=== PATIENT | female | born 1980 | race Caucasian/White ===

== ENCOUNTER 2017-04-14 20:45 | Emergency (ER) | payer OTHER ==
[~2017-04-14] VITALS: Ht 162.6 cm; Wt 70.0 kg
[2017-04-15] MEDS ORDERED: HYDROcodone/APAP 5/325 TABLET PO ONE
[2017-04-15] MEDS ORDERED: HYDROcodone/APAP 5/325 TABLET ONE (00:11)
[2017-04-15 01:04] VITALS: BP 114/74
== END 2017-04-15 01:06 | disposition home or self-care (01) ==
LOC: ED 23:58
DX: O99.353 Diseases of the nervous system complicating pregnancy, third trimester (principal); G89.11 Acute pain due to trauma; Z88.0 Allergy status to penicillin
CPT/HCPCS: 59025; 99211; 99282; G0463

== ENCOUNTER 2017-05-05 03:19 | Inpatient (IN) | payer OTHER ==
[~2017-05-05] VITALS: Ht 162.6 cm; Wt 65.9 kg
[2017-05-05] MEDS: LACTATED RINGERS 1,000 ML IV SCH ×5 (06:50→18:34)
[2017-05-05] MEDS ORDERED: TERBUTALINE 1 MG/ML, 1ML IVPush PRN (07:00)
[2017-05-05] MEDS ORDERED: OXYTOCIN 30U/ 0.9% NaCL 500ML 500 ML IV ONE (07:00)
[2017-05-05] MEDS ORDERED: ONDANSETRON 2MG/ML, 2ML IVPush PRN (07:00)
[2017-05-05] MEDS ORDERED: FENTANYL PF 100 MCG/2ML IVPush PRN (07:00)
[2017-05-05] MEDS ORDERED: FENTANYL PF 100 MCG/2ML IV PRN (07:00)
[2017-05-05 07:22] LABS: HEMATOCRIT 36.6 % (34.6-47.8); HEMOGLOBIN 12.4 g/dL (11.7-16.4); WHITE BLOOD COUNT 9.1 x10^3/uL (3.4-10)
[2017-05-05] MEDS ORDERED: LIDOCAINE 1%, 20ML ONE (07:35)
[2017-05-05] MEDS ORDERED: MISOPROSTOL 200 MCG TABLET ONE (07:35)
[2017-05-05] MEDS ORDERED: NEWBORN KIT ONE (07:35)
[2017-05-05] MEDS ORDERED: OXYTOCIN 30U/ 0.9% NaCL 500ML 500 ML ONE (07:36)
[2017-05-05] MEDS ORDERED: VANCOMYCIN PMX 1GM/200ML 200 ML IVPB SCH (08:00)
[2017-05-05] MEDS ORDERED: LIDOCAINE/PF 1.5%-EPI 1:200K, 30ML ONE (09:29)
[2017-05-05] MEDS ORDERED: FENTANYL/BUPIV./NS/PF 250 ML EPIDCONT ONE (09:29)
[2017-05-05] MEDS ORDERED: FENTANYL/BUPIV./NS/PF 250 ML EPIDCONT SCH (10:34)
[2017-05-05] MEDS ORDERED: OXYTOCIN 30U/ 0.9% NaCL 500ML 500 ML IV PRN (10:39)
[2017-05-05] MEDS ORDERED: LACTATED RINGERS 1,000 ML IVBOLUS PRN (11:00)
[2017-05-05] MEDS: OXYTOCIN 30U/ 0.9% NaCL 500ML 500 ML IV SCH (15:51)
[2017-05-05] MEDS ORDERED: ACETAMINOPHEN 325 MG TABLET PO PRN ×2 (16:00)
[2017-05-05] MEDS ORDERED: MEASLES,MUMPS&RUBELLA VACC/PF 0.5 ML SQ-VACC PRN (16:00)
[2017-05-05] MEDS ORDERED: HYDROcodone/APAP 10/325 MG TABLET PO PRN (16:00)
[2017-05-05] MEDS ORDERED: GLYCERIN ADULT SUPP PR PRN (16:00)
[2017-05-05] MEDS ORDERED: MAGNESIUM HYDROXIDE 8%, 30ML UDC PO PRN (16:00)
[2017-05-05] MEDS ORDERED: DOCUSATE 100 MG CAPSULE PO PRN (16:00)
[2017-05-05] MEDS ORDERED: RHOGAM FROM BLOOD BANK 1 NOTE EA IM/IV ONE (16:00)
[2017-05-05] MEDS ORDERED: METOCLOPRAMIDE 5 MG/ML, 2ML IV PRN (16:00)
[2017-05-05] MEDS ORDERED: CARBOPROST TROMETHAMINE 250 MCG/ML, 1ML IM PRN (16:00)
[2017-05-05] MEDS ORDERED: DIPH,PERTUSS(ACELL),TET VAC/PF NC IM-VACC PRN (16:00)
[2017-05-05] MEDS ORDERED: ONDANSETRON 2MG/ML, 2ML IV PRN (16:00)
[2017-05-05] MEDS ORDERED: MISOPROSTOL 200 MCG TABLET PR PRN (16:00)
[2017-05-05] MEDS ORDERED: CALCIUM CARBONATE 500 MG TAB.CHEW PO PRN (16:00)
[2017-05-05] MEDS ORDERED: BISACODYL 10 MG SUPP PR PRN (16:00)
[2017-05-05] MEDS ORDERED: METHYLERGONOVINE 0.2 MG/ML IM PRN (16:00)
[2017-05-05] MEDS ORDERED: IBUPROFEN 600 MG TABLET ONE (16:01)
[2017-05-05] MEDS ORDERED: OXYcodone/APAP 5/325MG TABLET ONE (16:29)
[2017-05-05] MEDS: IBUPROFEN 600 MG TABLET PO PRN (16:31)
[2017-05-05] MEDS ORDERED: HYDROcodone/APAP 5/325 TABLET ONE (16:34)
[2017-05-05] MEDS: HYDROcodone/APAP 5/325 TABLET PO PRN (16:35)
[2017-05-05 18:30] VITALS: BP 113/73
[2017-05-05 19:15] VITALS: BP 100/62
[2017-05-05 23:59] LABS: HEMATOCRIT 36.6 % (34.6-47.8); HEMOGLOBIN 11.8 g/dL (11.7-16.4); WHITE BLOOD COUNT 14.4 x10^3/uL (3.4-10)
[2017-05-06 00:33] VITALS: BP 103/59
[2017-05-06] MEDS: OXYTOCIN 30U/ 0.9% NaCL 500ML 500 ML IV SCH ×2 (01:51→03:35)
[2017-05-06 04:10] VITALS: BP 111/67
[2017-05-06] MEDS: IBUPROFEN 600 MG TABLET PO PRN ×2 (04:27→11:51)
[2017-05-06] MEDS: HYDROcodone/APAP 5/325 TABLET PO PRN ×3 (07:17→15:05)
[2017-05-06 07:20] VITALS: BP 103/70
[2017-05-06] MEDS ORDERED: PRENATAL VIT/IRON/FA 1 EACH TABLET ONE (07:27)
[2017-05-06] MEDS ORDERED: PRENATAL VIT/IRON/FA 1 EACH TABLET PO SCH (09:00)
[2017-05-06] MEDS ORDERED: HYDR-3240 PO (10:11)
[2017-05-06] MEDS ORDERED: IBUP-1222 PO (10:11)
== END 2017-05-06 15:26 | disposition home or self-care (01) | DRG 775 ==
LOC: LDOP 03:19 → LDIP 05:55 → OBSVTOIN 06:41 → 2NW 18:04
PROVIDERS: ADMIT Obstetrics & Gynecology; ATTEND Obstetrics & Gynecology
PROC: 10E0XZZ Delivery of Products of Conception, External Approach (ICD-10-PCS; principal; 2017-05-05)
PROC: 0HQ9XZZ Repair Perineum Skin, External Approach (ICD-10-PCS; 2017-05-05)
PROC: 3E0S3CZ (ICD-10-PCS; 2017-05-05)
PROC: 00HU33Z Insertion of Infusion Device into Spinal Canal, Percutaneous Approach (ICD-10-PCS; 2017-05-05)
PROC: 10907ZC Drainage of Amniotic Fluid, Therapeutic from Products of Conception, Via Natural or Artificial Opening (ICD-10-PCS; 2017-05-05)
DX: O99.824 Streptococcus B carrier state complicating childbirth (principal); O99.344 Other mental disorders complicating childbirth; F32.9 Major depressive disorder, single episode, unspecified; F41.0 Panic disorder [episodic paroxysmal anxiety]; Z37.0 Single live birth; O70.0 First degree perineal laceration during delivery; Z3A.39 39 weeks gestation of pregnancy; Z87.440 Personal history of urinary (tract) infections; Z88.0 Allergy status to penicillin; Z90.49 Acquired absence of other specified parts of digestive tract; Z23 Encounter for immunization
CPT/HCPCS: 36415; 85025; 86850; 86900; J3370; G0378; J2590; J3010; J7120